=== PATIENT | female | born 1995 | race Caucasian/White ===

== ENCOUNTER 2016-11-12 07:00 | Emergency (ER) | payer OTHER ==
[2016-11-12 07:21] VITALS: TEMP 97.6
[2016-11-12 07:54] VITALS: BP 113/59; PULSE 54; RESP 16; O2SAT 99
== END 2016-11-12 08:41 | disposition home or self-care (01) | DRG 392 ==
LOC: ED 07:00
DX: R10.84 Generalized abdominal pain (principal)
CPT/HCPCS: 74020; 99282